=== PATIENT | female | born 1950 | race Caucasian/White ===

== ENCOUNTER → 2017-05-15 | Outpatient (CLI) | payer MEDICARE, OTHER ==
--- NOTE | 2017-05-15 13:44 | KCIC ---
MRI Cervical Spine Without Contrast History:New left shoulder pain, chronic neck problems. Technique: Multiplanar, multi sequential noncontrast MR imaging was performed of the cervical spine. Comparison: October 12, 2014 Findings: There is motion degradation, limits accurate evaluation of the neural foramina. Cervical cord caliber is within normal limits without convincing focal signal abnormality allowing for motion. There is moderate reversal of the lordotic curvature centered at C5. There is more advanced degenerative disc disease C5-C6 and C6-7 and to a somewhat lesser degree at C3-4. There is grade 1 anterior spondylolisthesis at C3-4 and C4-5 as seen previously. There is no new abnormality of the cervical medullary junction. Mild C6-7 endplate edema is likely reactive last degenerative in etiology. C2-C3: Spinal canal and neural foramina are adequate. C3-C4: There is severe left facet hypertrophic change. There is partial uncovering of the posterior aspect of the disc due to spondylolisthesis with minimal superimposed bulge. Central canal is minimally narrowed to approximately 9 mm. There is left uncovertebral degenerative change. There is fairly severe narrowing of the left neural foramen, right neural foramen very minimally narrowed. C4-C5: There is fairly severe left facet degenerative change. There is negligible posterior protrusion. Central canal is likely narrowed to 9 to 10 mm. Right neural foramen is overall adequate, probable mild narrowing of the left neural foramen. C5-C6: There is again disc osteophyte complex and superimposed shallow protrusion with indentation upon the ventral thecal sac greater centrally, effacement of ventral subarachnoid space and contact the ventral cord. Central canal is again narrowed to approximately 5 to 6 mm. There is uncovertebral degenerative change much greater on the right. Left neural foramen is grossly adequate, likely severe narrowing of the right neural foramen. C6-C7: There is again disc osteophyte complex and superimposed shallow protrusion with indentation upon the ventral thecal sac, effacement of ventral subarachnoid space and contact of the ventral cord. Central canal is narrowed to approximately 6 mm. There is uncovertebral degenerative change. There is likely moderate right and mild left neural foramina compromise. C7-T1: Spinal canal and neural foramina are adequate. Impression: 1. Exam is degraded by motion. 2. There is suspected spinal stenosis to 5-6 mm at C5-C6 and C6-7 with contact of the ventral cord. There is a lesser degree of mild spinal stenosis as described C3-4 and C4-5. 3. While limited accurate evaluation of the neural foramina due to motion, there is suspected neural foramina compromise as described greatest on the right at C5-C6, on the left at C3-4, and to lesser degree on the right at C6-7. 4. There is again advanced degenerative disc disease C5-C6 and C6-7 and to lesser degree at C3-4. There is multilevel spondylosis. 5. There is mild abnormal alignment as stated, multilevel facet degenerative change. Electronically signed by: Rakesh Acevedo MD (05/15/2017 1:41 PM) [id number]
== END | disposition home or self-care (01) ==
LOC: KCIC MRI 12:48
PROVIDERS: ATTEND Orthopaedic Surgery
DX: M48.02 Spinal stenosis, cervical region (principal); M50.321 Other cervical disc degeneration at C4-C5 level; M50.322 Other cervical disc degeneration at C5-C6 level; M50.323 Other cervical disc degeneration at C6-C7 level; M47.892 Other spondylosis, cervical region
CPT/HCPCS: 72141

== ENCOUNTER → 2018-01-02 | Outpatient (CLI) | payer MEDICARE, OTHER | END | disposition home or self-care (01) | LOC: KCIC MRI 10:46 | DX: M75.122 Complete rotator cuff tear or rupture of left shoulder, not specified as traumatic (principal) | CPT/HCPCS: 73221 ==

== ENCOUNTER → 2018-12-08 | Outpatient (CLI) | payer MEDICARE ==
--- NOTE | 2018-12-08 16:05 | KCIC ---
Indication: Lumbar back pain TECHNIQUE: 3 views of the lumbar spine COMPARISON: None FINDINGS: Mild levoscoliosis is seen of the lumbar spine with apex at L2 vertebral body. No compression deformities. Multilevel intervertebral disc space narrowing is seen with endplate irregularities and moderate osteophyte formation. Lower lumbar spine facet arthropathy noted. Atherosclerotic disease is seen of the abdominal aorta and iliac arteries. IMPRESSION: Multilevel advanced degenerative disc disease with associated facet arthropathy. Electronically signed by: Nain Young DO (12/08/2018 4:02 PM) [facility]
== END | disposition home or self-care (01) ==
LOC: KCIC 09:43
PROVIDERS: ATTEND Family Medicine
DX: M51.36 Other intervertebral disc degeneration, lumbar region (principal); M12.88 Other specific arthropathies, not elsewhere classified, other specified site; M25.78 Osteophyte, vertebrae; M48.061 Spinal stenosis, lumbar region without neurogenic claudication; M41.86 Other forms of scoliosis, lumbar region
CPT/HCPCS: 72100

== ENCOUNTER → 2019-01-13 | Outpatient (CLI) | payer MEDICARE ==
--- NOTE | 2019-01-13 16:54 | KCIC ---
MRI of the lumbar spine without contrast 01/13/2019 CLINICAL HISTORY: Chronic low back pain aggravated by standing and walking. History of previous lumbar spine surgery over 30 years ago. TECHNIQUE: Unenhanced T1-weighted and T2-weighted sagittal and axial and inversion recovery sagittal images of the lumbar spine were obtained. FINDINGS: Mild S-shaped curvature of the thoracolumbar spine is seen. Moderate anterolisthesis of L4 in relation L5 is noted. Degenerative signal changes are seen involving all of the disks of the lumbar spine. Degenerative signal changes are seen within the marrow surrounding these discs. Loss of height of the T12-L1, L1-2, L2-3 and L4-5 discs is noted. The conus medullaris is normal in position and signal characteristics. At the T12-L1 disc space there is a moderate generalized disc bulge. This is eccentric to the right. Degenerative changes are seen involving the facet joints bilaterally. There is mild to moderate ligamentum flavum hypertrophy bilaterally. These findings when combined result in mild to moderate right greater than left central spinal canal stenosis. Mild right neural foraminal stenosis is seen. The left neural foramen is patent. At the L1-2 disc space there is a mild to moderate generalized disc bulge. Degenerative changes are seen involving the facet joints bilaterally. There is moderate ligamentum flavum hypertrophy bilaterally. These findings when combined result in mild to moderate central spinal canal stenosis. Mild right neural foraminal stenosis is seen. The left neural foramen is patent. At the L2-3 disc space there is a mild generalized disc bulge. The patient is post laminectomy. Degenerative changes are seen involving the facet joints bilaterally. These findings do not result in significant central spinal canal stenosis. Mild right greater than left neural foraminal stenosis is seen. At the L3-4 disc space there is a mild to moderate generalized disc bulge. Degenerative changes are seen involving the facet joints bilaterally. There is moderate ligamentum flavum hypertrophy bilaterally. These findings when combined result in mild to moderate central spinal canal stenosis. Mild bilateral neural foraminal stenosis is seen. At L4-5 level, there is a mild generalized disc bulge. Degenerative changes are seen involving the facet joints bilaterally. No significant central spinal canal stenosis is seen. The anterolisthesis at this level contributes to moderate to severe bilateral neural foraminal stenosis. At the L5-S1 disc space the patient is post laminectomy. There is mild generalized disc bulge. Degenerative changes are seen involving the facet joints bilaterally. These findings do not result in significant central spinal canal or neural foraminal stenosis. IMPRESSION: 1. Post laminectomy at L2-3 and L5-S1. 2. The changes of degenerative disc disease are seen throughout the lumbar spine. These findings result in mild to moderate right greater than left central spinal canal stenosis at T12-L1, mild to moderate central spinal canal stenosis at L1-2 and L3-4. Mild right neural foraminal stenosis is seen at T12-L1 and L1-2. Mild right greater than left neural foraminal stenosis is seen at L2-3. Mild bilateral neural foraminal stenosis is seen at L3-4. Moderate to severe bilateral neural foraminal stenosis is seen at L4-5. Electronically signed by: Kenan Price MD (01/13/2019 4:51 PM) [facility]
== END | disposition home or self-care (01) ==
LOC: KCIC MRI 12:01
PROVIDERS: ATTEND Family Medicine
DX: M51.36 Other intervertebral disc degeneration, lumbar region (principal); M48.05 Spinal stenosis, thoracolumbar region; M51.27 Other intervertebral disc displacement, lumbosacral region; M47.817 Spondylosis without myelopathy or radiculopathy, lumbosacral region; M51.24 Other intervertebral disc displacement, thoracic region; M43.8X5 Other specified deforming dorsopathies, thoracolumbar region; M43.16 Spondylolisthesis, lumbar region; Z98.890 Other specified postprocedural states
CPT/HCPCS: 72148

== ENCOUNTER → 2019-02-13 | Outpatient (CLI) | payer MEDICARE ==
--- NOTE | 2019-02-13 12:55 | KCIC ---
EXAM: Dual energy x-ray absorptiometry (DEXA). HISTORY: Postmenopausal female presents for osteoporosis screening. COMPARISON: None. TECHNIQUE: Dual energy x-ray absorptiometry of the lumbar spine and left hip was performed. Calculation of bone mineral density based on standard deviations above or below the expected young adult normal value (T-score) was completed. FINDINGS: The average bone mineral density in the 1st through 4th lumbar vertebrae is 1.226 g/cmxcm, corresponding with a T-score of 1.3. The average total bone mineral density in the left hip is 0.810 g/cmxcm, corresponding with a T-score of -1.1. IMPRESSION: 1. Osteopenia measured at the left hip. 2. Normal bone mineral density measured at the lumbar spine. Note: Definitions established by the [employer]: 1. Normal: T-score is -1.0 or above. 2. Osteopenia: T-score is between -1.0 and -2.5 . 3. Osteoporosis: T-score is -2.5 or below. Electronically signed by: Yanira Orantes MD (02/13/2019 12:52 PM) [place] [id number]
== END | disposition home or self-care (01) ==
LOC: KCIC DEXA 11:00
PROVIDERS: ATTEND Orthopaedic Surgery
DX: Z13.820 Encounter for screening for osteoporosis (principal); M85.88 Other specified disorders of bone density and structure, other site; N95.9 Unspecified menopausal and perimenopausal disorder; E05.90 Thyrotoxicosis, unspecified without thyrotoxic crisis or storm; Z96.612 Presence of left artificial shoulder joint
CPT/HCPCS: 77080